=== PATIENT | female | born 2000 | race African-American/Black ===

== ENCOUNTER 2019-01-26 08:51 | Emergency (ER) | payer OTHER ==
[~2019-01-26] VITALS: Ht 157.5 cm; Wt 85.7 kg
== END 2019-01-26 13:21 | disposition home or self-care (01) ==
LOC: ER 08:51
DX: O98.512 Other viral diseases complicating pregnancy, second trimester (principal); B34.9 Viral infection, unspecified; Z34.02 Encounter for supervision of normal first pregnancy, second trimester

== ENCOUNTER 2023-10-26 17:38 | Emergency (ER) | payer OTHER ==
[~2023-10-26] VITALS: Ht 157.5 cm; Wt 99.8 kg
[2023-10-26] MEDS ORDERED: CEFTRIAXONE SODIUM 1,000 MG VIAL IM ONE (19:15)
[2023-10-26 19:28] LABS: HEMATOCRIT 33.9 % (36.0-45.00); HEMOGLOBIN 11.2 g/dL (12.0-15.00); MEAN CORPUSCULAR HEMOGLOBIN 24.1 pg (27.00-32.0); MEAN CORPUSCULAR HGB CONC 33.1 g/dl (32.0-36.0); PLATELET COUNT 244 K/uL (150-450); RED BLOOD COUNT 4.64 M/uL (4.00-6.00)
[2023-10-26 19:36] LABS: RED CELL DISTRIBUTION WIDTH 16.6 % (11.5-14.5)
[2023-10-26 20:13] LABS: URINE APPEARANCE Cloudy; URINE BILIRRUBIN Negative (NEGATIVE); URINE BLOOD Large; URINE COLOR Yellow; URINE GLUCOSE Negative (NEGATIVE); URINE LEUKOCYTE Small; URINE NITRATE Negative; URINE PROTEIN Trace (NEGATIVE)
[2023-10-26 20:17] LABS: URINE BACTERIA 2674.8 uL (0.0-1933); URINE EPITHELIAL CELLS 33.7 uL (0.0-38.8); URINE RBC 2137.3 uL (0.0-20.8); URINE WBC 184.7 uL (0.0-23.2)
[2023-10-26] MEDS ORDERED: BACTRIM DS TAB1 EACH PO (20:53)
== END 2023-10-26 21:20 | disposition home or self-care (01) ==
LOC: ER 17:39
PROVIDERS: General Practice
DX: R30.0 Dysuria (principal); N39.0 Urinary tract infection, site not specified
CPT/HCPCS: 36415; 96372; 99282; J0696

== ENCOUNTER 2024-01-27 20:08 | Emergency (ER) | payer OTHER ==
[~2024-01-27] VITALS: Ht 157.5 cm; Wt 97.5 kg
[~2024-01-27 20:08] MED LIST: BACTRIM DS TAB1 EACH PO
[2024-01-27 20:28] VITALS: BP 148/81; O2SAT 99
[2024-01-27] MEDS ORDERED: CEFTRIAXONE SODIUM 1,000 MG VIAL IV ONE (22:00)
[2024-01-27] MEDS ORDERED: FAMOtidine 10 MG/ML (4ML VIAL) IV ONE (22:00)
[2024-01-27] MEDS ORDERED: 0.9 % SODIUM CHLORIDE 1,000 ML IV ONE (22:00)
[2024-01-27] MEDS ORDERED: KETOROLAC TROMETHAMINE 60 MG VIAL IM ONE (22:00)
[2024-01-27 23:06] LABS: HEMATOCRIT 36.1 % (36.0-45.00); MEAN CELL VOLUME 74.4 fL (80.00-100.00); MEAN CORPUSCULAR HGB CONC 33.2 g/dl (32.0-36.0); PLATELET COUNT 292 K/uL (150-450); RED BLOOD COUNT 4.86 M/uL (4.00-6.00); RED CELL DISTRIBUTION WIDTH 15.9 % (11.5-14.5)
[2024-01-27 23:10] LABS: URINE APPEARANCE Clear; URINE BILIRRUBIN Negative (NEGATIVE); URINE BLOOD Large; URINE COLOR Yellow; URINE GLUCOSE Negative (NEGATIVE); URINE KETONE Trace (NEGATIVE); URINE LEUKOCYTE Moderate; URINE NITRATE Negative; URINE PROTEIN 30 (NEGATIVE)
[2024-01-27 23:14] LABS: URINE BACTERIA 5615.7 uL (0.0-1933); URINE RBC 897.2 uL (0.0-20.8); URINE WBC 1719.4 uL (0.0-23.2)
[2024-01-27 23:17] LABS: MEAN CORPUSCULAR HEMOGLOBIN 24.6 pg (27.00-32.0)
[2024-01-27 23:29] LABS: ALBUMIN 3.8 gm/dL (3.4-5.0); ALKALINE PHOSPHATASE 87 U/L (50-136); ALT/SGPT 18 U/L (12-78); ANION GAP 9 (10.0-20.0); AST/SGOT 15 U/L (15-37); BILIRUBIN TOTAL 0.33 mg/dL (0.3-1.2); BLOOD UREA NITROGEN 11 mg/dL (7-18); BUN CREA RATIO 15 (7.0-25.0); CARBON DIOXIDE 28 mEq/L (21-32); CHLORIDE 107 mmol/L (98-107); CREATININE SERUM 0.72 mg/dL (0.55-1.02); GFR 99.52; GLOBULINA 3.9 G/DL (2.4-3.5); GLUCOSE FASTING 94 mg/dL (65-100); OSMOLALITY SERUM 279 MOSM/KG (275-295); POTASSIUM 4.06 mEq/L (3.5-5.1); SODIUM 140 mmol/L (136-145); TOTAL PROTEIN 7.7 gm/dL (6.4-8.2)
[2024-01-27 23:40] LABS: HCG QUANTITATIVE < 1 mUI/mL (1-3)
[2024-01-27 23:43] LABS: URINE CAST 0.91 uL (0.0-1.40)
[2024-01-27 23:48] LABS: URINE CRYSTALS FEW /HPF; URINE YEAST FEW /hpf
[2024-01-28] MEDS ORDERED: MEPERIDINE HCL/PF 50 MG/ML VIAL IM STA (02:50)
[2024-01-28] MEDS ORDERED: KETO10TA2 PO (05:14)
[2024-01-28] MEDS ORDERED: CEPHALEXIN500 MG PO (05:14)
== END 2024-01-28 05:18 | disposition home or self-care (01) ==
LOC: ER 20:09
PROVIDERS: General Practice
DX: R10.31 Right lower quadrant pain (principal); R30.0 Dysuria; N83.201 Unspecified ovarian cyst, right side; N20.1 Calculus of ureter

== ENCOUNTER 2024-10-03 08:13 | Emergency (ER) | payer OTHER ==
[~2024-10-03] VITALS: Ht 157.5 cm; Wt 95.3 kg
[~2024-10-03 08:13] MED LIST changes: +CEPHALEXIN500 MG PO; +KETO10TA2 PO
== END 2024-10-03 09:35 | disposition home or self-care (01) ==
LOC: ER 09:00
DX: R04.0 Epistaxis (principal)